=== PATIENT | female | born 1970 | race Caucasian/White ===

== ENCOUNTER → 2016-11-29 | Outpatient (CLI) | payer OTHER ==
--- NOTE | 2016-11-29 21:47 | US ---
EXAMINATION TYPE: US thyroid st tissue head/neck DATE OF EXAM: 11/29/2016 4:13 PM COMPARISON: NONE CLINICAL HISTORY: 46-year-old female E07.9 Disorder of thyroid. Choking sensation. TECHNIQUE: Multiple sonographic images of the thyroid gland are obtained. FINDINGS: Right Lobe: 4.6 x 1.6 x 1.4 cm Left Lobe: 4.5 x 1.1 x 1.2 cm Isthmus Thickness: 0.2 cm There is homogeneous glandular parenchyma without discrete nodule. Bilateral neck scanned, no evidence of lymphadenopathy. IMPRESSION: Thyroid gland measurements as above, within normal limits. No discrete nodule.
== END ==
LOC: RADUSWWP 16:02
PROVIDERS: ATTEND Family Medicine
DX: E07.9 Disorder of thyroid, unspecified (principal)
CPT/HCPCS: 76536

== ENCOUNTER → 2016-12-04 | Outpatient (CLI) | payer OTHER ==
--- NOTE | 2016-12-04 19:40 | MR ---
EXAMINATION TYPE: MR lumbar spine wo/w con DATE OF EXAM: 12/04/2016 6:57 PM COMPARISON: NONE HISTORY: low back pain Multihance 15 CONTRAST: The patient was injected with 15 mL intravenous MultiHance gadolinium contrast. Multiplanar, MultiSpin echo imaging of the lumbar spine was performed. L1-L2: Normal disc appearance without desiccation. No herniation, protrusion or disc bulging. No ca nal stenosis is present. Foramina are patent bilaterally. L2-L3: Moderate disc desiccation. Mild posterior disc bulge. No evidence for herniation protrusion or central stenosis. L3-L4: Mild to moderate disc desiccation noted. Right paracentral disc protrusion situated at the rig ht neural foramen resulting in right foraminal encroachment. No evidence for central stenosis. Left n eural foramen is patent. L4-L5: Mild disc desiccation. Right paracentral disc bulge without herniation or protrusion. No centr al stenosis. Bilateral foraminal encroachment. Facet joint arthropathy. L5-S1: Mild disc desiccation. Posterior disc bulge. Mild effacement ventral thecal sac. No evidence f or herniation or central stenosis. Moderate facet joint arthropathy resulting in left greater than ri ght foraminal encroachment. Lumbar segments are intact. No paraspinal masses are identified. Conus medullaris has a normal appe arance. No evidence of pathologic enhancement. IMPRESSION: 1. Degenerative disc disease as discussed. 2. right paracentral disc protrusions at L2-3 and L3-4 as discussed 3. Foraminal encroachment as noted above.
== END | disposition home or self-care (01) ==
LOC: RADMRIMAIN 18:10
PROVIDERS: ATTEND Nurse Practitioner Adult Health
DX: M51.36 Other intervertebral disc degeneration, lumbar region (principal); M51.37 Other intervertebral disc degeneration, lumbosacral region; M51.26 Other intervertebral disc displacement, lumbar region
CPT/HCPCS: 72158

== ENCOUNTER → 2017-01-02 | Outpatient (CLI) | payer OTHER ==
[2016-12-28 11:24] VITALS: BMI 23.5
[2017-01-02 14:09] VITALS: BP 133/64; PULSE 96; RESP 18; TEMP 98.6
--- NOTE | 2017-01-04 11:39 | P.CONS ---
History of Present Illness - Reason for Consult Consult date: 01/02/17 - History of Present Illness This is the initial consultation visit for this 46 years FEMALE, with a chronic history of severe neck pain and low back pain, patient reported that she had no specific event that caused her pain, and intensity of the pain increased over the last several months, she had a few episodes of pain several years ago and she was treated with interventional pain management and that helped her neck pain, she denies any motor deficit she denies any sensory deficit no change in the bowel movement or urination, she had no fever or night sweats, intensity of the pain as 3/10 and increases with any activity to 7-8/10, most of the neck pain localized in the cervical area and occasional radiation to the shoulder blade area, mainly to the right second and some to the left side, she is currently on multiple pain medication and she had minimal benefit from it , and she is looking forward for interventional pain management hopefully this will help her pain, and avoid any surgical intervention Past Medical History Past Medical History: Asthma, Cancer, Fibromyalgia, GERD/Reflux, Osteoarthritis (OA), Rheumatoid Arthritis (RA) Additional Past Medical History / Comment(s): hx basal cell skin cancer, cervical cancer, hypoglycemia, pain-neck and lower back/raquel danlos History of Any Multi-Drug Resistant Organisms: None Reported Past Surgical History: Cholecystectomy, Hysterectomy, Orthopedic Surgery, Tubal Ligation Additional Past Surgical History / Comment(s): rt shoulder surgery x6, D&C x2, Mohs surgery, benign tumor removed from lt arm Past Anesthesia/Blood Transfusion Reactions: Motion Sickness Past Psychological History: No Psychological Hx Reported Smoking Status: Former smoker Past Alcohol Use History: Occasional Additional Past Alcohol Use History / Comment(s): smoked "off and on 28 years" 1ppd quit 10/20 Past Drug Use History: None Reported Medications and Allergies Home Medications Medication Instructions Recorded Confirmed Type Albuterol Inhaler [Ventolin Hfa PRN 01/02/17 History Inhaler] Albuterol Nebulized [Ventolin PRN 01/02/17 01/02/17 History Nebulized] Amitriptyline HCl [Elavil] 50 mg PO HS 01/02/17 01/02/17 History Baclofen [Baclofen] 10 mg PO PRN 01/02/17 History Cetirizine HCl [Zyrtec] 10 mg PO DAILY 01/02/17 01/02/17 History Hydrocodone/Acetaminophen [[place] TID 01/02/17 History 10-325 Tablet] Ibuprofen [Motrin] 800 mg PO PRN 01/02/17 History Methylphenidate HCl [Concerta] 36 mg PO DAILY 01/02/17 01/02/17 History Minocycline HCl [Minocycline HCl 45 mg PO DAILY 01/02/17 01/02/17 History ER] Omeprazole [PriLOSEC] 20 mg PO BID 01/02/17 01/02/17 History Ranitidine HCl [Zantac] 150 mg PO BID 01/02/17 01/02/17 History Sucralfate [Carafate] 1 gm PO TID 01/02/17 01/02/17 History Allergies Allergy/AdvReac Type Severity Reaction Status Date / Time Penicillins AdvReac Rash/Hives Verified 01/02/17 13:41 Physical Exam Review of Systems : 1- Constitutional : no chills , no fever , no night sweats , 2- Ears : no ear discharge , no change in hearing 3-Nose, Mouth ,Throat ; no bleeding gums, no sore throat , no epistaxis , 4-Cardiovascular : Denies chest pain, , no orthopnea , no palpitation 5-Respiratory : Denies cough , no dyspnea , no hemoptysis 6-Gastrointestinal :, no change in bowel habits , no coffee- ground emesis . 7-Genitourinary : No hematuria , no discharge , no incontinence, 8-Musculoskeletal : Reports neck pain,, report low back pain , report right shoulder pain 9- Neurological : no ataxia , no tremor , no sezure , 10-Psychatric , no suicidal ideation no hallucination 11- Endocrine : no cold intolerence , no polyuria , no polydypsia , 12-Hematologic : no easy bleeding , no easy brusing , 13-Allergic / immunology : no angioedema , no wheezing ,no allergic rhinitis 14-Integumentary : no brttle nails , no change hair / nails , no foot/leg ulcers . Physical Examinations : 1-Constitutional : Cooperative , not in acute distress . 2-HEENT : nech ; supple , no Lymphadenopathy , no Thyromegaly , :eyes , no icterus, no photophobia . ENT : , normal oropharynx , no Thrush 3- Respiratory : Chest clear to auscultations Bilaterally , no wheezing . 4- Cardiovascular : regular rate and rhythem , S1 , S2 , no S3 , no S4. 5- Gastrointestinal: abdomen soft no tenderness , no organomegally . 6- Genitourinary : Defferred . 7-Integumentary : No cellulitis , no ulcers , normal skin turgor , no cyanotic . 8- neurologic : Cranial nerve II to XII intact , no focal neurological deffecit 9-psychatric : alert , oriented X 3 , appropriate affect , intact judgment and insight . 10-Lymphatic : no Lymphadenopathy. 11- musculoskeltal: normal gait Cervical Spine motor stregnth in the deltoid and biceps, normal right side , normal Left side motor stregnth biceps and the wrist extensors normal right side ,normal left side . motor stregnth in the triceps muscle . normal Right side , normal Left side deep tendon reflexes normal at the biceps , normal at Brachioradialis , normal at triceps. positive cervical facet loading test . Any right shoulder manipulation secondary to severe pain Lumber spine moter stegnth lower extremities ,thigh and legs 5/5 Right side , 5/5 Left side deep tendon reflexes : normal Knee Jerk , normal ankle Jerk positive lumber facet Loading Test Range of motion of the lumbar spine Flexion 30 degrees, extension 10 degrees strait leg raising test , positive at degree Fabere test positive RT and positive LT . Results Labs: MRI of the lumbar spine L2-3 disc desiccation and disc bulging, L3 4 disc desiccation and right paracentral disc protrusion and neural foraminal, L 45 disc desiccation and right paracentral disc bulging and there is facet arthropathy, L5-S1 disc desiccation and facet arthropathy. Computed tomography scan of the cervical spine cervical spondylosis with facet arthropathy mainly at C5 6 Assessment and Plan Plan: Assessment and plan = - Chronic low back pain secondary to lumbar degenerative disc disease , lumbar spondylosis with facet arthropathy without myelopathy , -Chronic neck pain secondary to cervical spondylosis with cervical facet arthropathy without myelopathy . - diagnoses, prognosis, and treatment options including but not limited to physical therapy, surgical interventions, interventional therapies and medication management including narcotics and adjuvant medication were discussed with the patient and all questions answered to the patient's satisfaction. Description already referred to see a surgeon regarding her low back pain , -medication refile = from her primary care -procedure= patient could benefit from diagnostic medial branch block cervical area C3-4/ C4- 5 / and C5-6 , will do it twice and if she had more than 50% improvement in her neck pain then we will proceed with a radiofrequency ablation of the medial posterior cervical area Time with Patient: Greater than 30
== END | disposition home or self-care (01) ==
LOC: PNWHC3 13:35
PROVIDERS: ATTEND Specialist
DX: M51.36 Other intervertebral disc degeneration, lumbar region (principal); M47.816 Spondylosis without myelopathy or radiculopathy, lumbar region; M46.96 Unspecified inflammatory spondylopathy, lumbar region; M47.812 Spondylosis without myelopathy or radiculopathy, cervical region; M46.92 Unspecified inflammatory spondylopathy, cervical region; M51.26 Other intervertebral disc displacement, lumbar region; J45.909 Unspecified asthma, uncomplicated; M79.7 Fibromyalgia; K21.9 Gastro-esophageal reflux disease without esophagitis; M19.90 Unspecified osteoarthritis, unspecified site; M06.9 Rheumatoid arthritis, unspecified; Z87.891 Personal history of nicotine dependence; Z79.899 Other long term (current) drug therapy; Z88.0 Allergy status to penicillin
CPT/HCPCS: 99211

== ENCOUNTER 2017-02-07 09:16 | Day surgery (SDC) | payer OTHER ==
[2017-02-05 08:52] VITALS: BMI 23.5
[2017-02-07] MEDS ORDERED: LACTATED RINGERS 1,000 ML IV SCH (09:30)
[2017-02-07 09:37] VITALS: TEMP 98.2
[2017-02-07] MEDS ORDERED: LIDOCAINE 1% 20 ML VIAL (10MG/ML) FOR IV START INTRADERMA ONE (09:38)
[2017-02-07 09:41] LABS: Glucose,Whole Blood 92 mg/dL (75-99)
[2017-02-07] MEDS ORDERED: MIDAZOLAM 2 MG/2 ML VIAL ONE (10:19)
[2017-02-07] MEDS ORDERED: BUPIVACAINE (PF) 0.5% 30 ML VIAL ONE (10:19)
[2017-02-07] MEDS ORDERED: DEXAMETHASONE SOD PHOS (MDV) 100 MG/10 ML VIAL ONE (10:19)
--- NOTE | 2017-02-07 10:42 | P.PCN ---
Date of Procedure: 02/07/17 Preoperative Diagnosis: Postoperative Diagnosis: Procedure(s) Performed: Implants: Surgeon: Higinio Slaughter Pathology: none sent Condition: stable Disposition: PACU Indications for Procedure: Operative Findings: Description of Procedure: PREOPERATIVE DIAGNOSIS: Cervical spondylosis without myelopathy, cervicogenic headache. POSTOPERATIVE DIAGNOSIS: same PROCEDURES: Diagnostic bilateral C4, C5, and C6 medial branch block, with fluoroscopic guidance ANESTHESIA: Local with 1% lidocaine; conscious sedation EBL: Minimal PROCEDURE INDICATION: This is a patient with neck pain and headaches secondary to cervical arthropathy unresponsive to more conservative treatments. MBB#1 today. PROCEDURE DESCRIPTION / TECHNIQUE: The patient was seen and identified in the preoperative area. Risks, benefits, complications, and alternatives were discussed with the patient (including but not limited to incomplete pain relief , bleeding, infection, nerve damage, and allergies to medications), the patient agreed to proceed with the procedure and signed the consent after all questions were answered. IV was started. Vital signs remained stable throughout the procedure. Patient was taken to the OR and time out was completed. The patient was placed in the prone position on the procedure table. A pillow was placed under the patients chest to increase the cervical interlaminar space. The cervical area was prepped and draped in the usual sterile fashion. Critical pause was taken. Vital signs were closely monitored during the procedure. Conscious sedation was used during the procedure to decrease patients anxiety. Using cross-table lateral fluoroscopy, the centroid of the trapezoid of right C4 , was identified, marked, and localized with 1% lidocaine. Subsequently, a 22- gauge 3.5-inch spinal needle was advanced guided by fluoroscopy to the centroid of the trapezoid of C4. Needle tip position was confirmed at the centroid of the trapezoids of C4 with anteroposterior fluoroscopy. Subsequently, 1 ml of a combination of 10 mg Decadron and 6 ml of preservative-free Bupivacaine 0.5% was injected after negative aspiration for blood and CSF. Needle was then removed intact; the same procedure was repeated at the right C5 and C6 levels. This process was then repeated on the left side as above for the left C4, C5, and C6 medial branches. All aspirations were negative for heme or CSF. All needles were removed intact. At the end of the procedure, skin was cleansed and bandages were applied. COMPLICATIONS: No acute complications. COMMENTS: DISPOSITION / PLANS: The patient was placed in a supine position and transferred to the recovery area in a stable condition for observation and was discharged from the recovery room after meeting discharge criteria. Home discharge instructions given to the patient by the staff. The patient was reexamined prior to discharge and there were no issues. The patient will schedule a repeat bilateral cervical medial branch block C3-C6 at next visit.
[2017-02-07] MEDS ORDERED: IV FLUID CONTINUATION 1,000 ML IV ONE ×2 (10:54)
--- NOTE | 2017-02-07 11:02 | FL ---
EXAMINATION TYPE: FL guided pain mgmt statistic DATE OF EXAM: 02/07/2017 HISTORY: Flouroscopy time 11 seconds of fluoroscopy provided. IMPRESSION: 1. Fluoroscopy time.
[2017-02-07 11:03] VITALS: BP 104/65; RESP 18
[2017-02-07 11:17] VITALS: PULSE 84
== END 2017-02-07 11:42 | disposition home or self-care (01) ==
LOC: ORPAIN 09:16
PROVIDERS: ATTEND Anesthesiology
DX: M47.812 Spondylosis without myelopathy or radiculopathy, cervical region (principal); R51 Headache; Z88.0 Allergy status to penicillin; Z91.09 Other allergy status, other than to drugs and biological substances
CPT/HCPCS: 64490; 64491; 64492; 99152; 99153; J2250; J1100

== ENCOUNTER 2017-03-26 09:49 | Day surgery (SDC) | payer OTHER ==
[2017-03-02 11:29] VITALS: BMI 23.5
[~2017-03-26 09:49] MED LIST: LACTATED RINGERS 1,000 ML IV SCH
[2017-03-26 09:58] VITALS: RESP 16; TEMP 96.2
[2017-03-26] MEDS ORDERED: LIDOCAINE 1% 20 ML VIAL (10MG/ML) FOR IV START INTRADERMA ONE (10:02)
--- NOTE | 2017-03-26 10:36 | P.PCN ---
Date of Procedure: 03/26/17 Preoperative Diagnosis: Cervical spondylosis without myelopathy Postoperative Diagnosis: same as above Procedure(s) Performed: Cervical bilateral medial branch block under fluoroscopic guidance for the medial branches number C4, C5, C6, and C7. Implants: Anesthesia: other (Moderate conscious sedation with IV Versed) Surgeon: Beronica Cain Pathology: none sent Condition: stable Disposition: PACU Indications for Procedure: Operative Findings: Description of Procedure: Was seen in preoperative holding area consent was obtained then she was brought into the procedure room and placed in the supine position. Can was prepped with DuraPrep and draped in a sterile manner. Lidocaine 1% was used to numb the skin up at the target points that were chosen as follows: The C4, C5, and C6 medial branches the target points were the center of the trapezoid shaped cervical articular pillars of the vertebral lumbar C4, C5, and C6 on the lateral view of fluoroscopy. For the C7 medial branches the target point was at the superior articular process of the C7 vertebra on the lateral view of fluoroscopy. I Used 25-gauge 3-1/2 inch Quincke spinal needle for this procedure and after contacting bone at the target points mentioned above I injected 0.5 MLS of Marcaine 0.5%. Patient tolerated procedure well. The waseizure procedure done on both sides in the same manner.
--- NOTE | 2017-03-26 10:49 | FL ---
Fluoroscopy HISTORY: Pain 16 seconds fluoroscopy time supplied to the referring clinician. 7 intraoperative C-arm images docum ent the procedure. See dictated report from anesthesia.
[2017-03-26 11:06] VITALS: BP 104/74; PULSE 86
[2017-03-26] MEDS ORDERED: IV FLUID CONTINUATION 1,000 ML IV ONE (11:08)
== END 2017-03-26 11:12 | disposition home or self-care (01) ==
LOC: ORPAIN 09:49
PROVIDERS: ATTEND Anesthesiology
DX: M47.812 Spondylosis without myelopathy or radiculopathy, cervical region (principal); Z88.0 Allergy status to penicillin
CPT/HCPCS: 64490; 64491; 64492; 99152; J2250; 99153

== ENCOUNTER 2017-04-12 10:53 | Day surgery (SDC) | payer OTHER ==
[2017-04-11 08:50] VITALS: BMI 22.7
[2017-04-12] MEDS ORDERED: LIDOCAINE 1% 20 ML VIAL (10MG/ML) FOR IV START INTRADERMA ONE (11:22)
[2017-04-12 11:25] VITALS: RESP 16; TEMP 98.5
--- NOTE | 2017-04-12 12:52 | FL ---
EXAMINATION TYPE: FL guided pain mgmt statistic DATE OF EXAM: 04/12/2017 HISTORY: Flouroscopy time 9 seconds of fluoroscopy provided. IMPRESSION: 1. Fluoroscopy time.
[2017-04-12] MEDS ORDERED: IV FLUID CONTINUATION 1,000 ML IV ONE (12:55)
--- NOTE | 2017-04-12 13:01 | P.PCN ---
Date of Procedure: 04/12/17 Preoperative Diagnosis: Postoperative Diagnosis: Procedure(s) Performed: PREOPERATIVE DIAGNOSIS: Cervical spondylosis with Facet Arthropathy without myelopathy. POSTOPERATIVE DIAGNOSIS: Cervical spondylosis with Facet Arthropathy without myelopathy. PROCEDURES: Radiofrequency thermocoagulation, right C3-4, C4-5, C5-6 medial branch with Fluroscopy [place] ANESTHESIA: Local with 1% lidocaine; IV sedation with fentanyl 100 mcg and Versed.2 mg EBL: Minimal PROCEDURE INDICATION: The patient with neck pain secondary to cervical arthropathy who had more than 50% relief of her pain with previous diagnostic cervical medial branch block. PROCEDURE DESCRIPTION / TECHNIQUE: The patient was seen and identified in the preoperative area. Risks, benefits, complications, and alternatives were discussed with the patient, the patient agreed to proceed with the procedure and signed the consent. IV was started. Vital signs remained stable throughout the procedure. Patient was taken to the OR and time out was completed. The patient was placed in the prone position on the procedure table. A pillow was placed under the patients chest to increase the cervical interlaminar space. The cervical area was prepped and draped in the usual sterile fashion. Critical pause was taken. Vital signs were closely monitored during the procedure. Conscious sedation was used during the procedure to decrease patients anxiety. Using cross-table lateral fluoroscopy, the centroid of the trapezoid of right C3, C4, C5, were identified, marked, and localized with 1% lidocaine. Subsequently, a 20 [id number] radiofrequency cannula with a 10-mm active tip was advanced guided by fluoroscopy to the centroid of the trapezoid of right C3 , C4, C5, . Needle tip position was confirmed at the centroid of the trapezoids of right C3, C4, C5, with anteroposterior fluoroscopy. Each site then underwent sensory testing at 50 Hz and 0 to 1 volt and motor testing at 2 Hz and 0 to 3 volt with local stimulation, but no radicular symptoms down the arm. Thereafter the right C3, C4,C5 sites underwent radiofrequency thermocoagulation at 80 degrees celsius for 90 seconds after injecting 0.5 ml of PF lidocaine 1%. After thermocoagulation, 1 ml of the block solution containing dexamethasone 10 mg and 3 mL of preservative-free normal saline was injected at the right C3-4, C4-5 , C5-6, levels after negative aspiration of CSF and blood and with no paresthesias. Cannulas were retracted while injecting lidocaine 1% until the needle is out. Skin was cleansed and bandages were applied. COMPLICATIONS: No acute complications. DISPOSITION / PLANS: The patient was placed in a supine position and transferred to the recovery area in a stable condition for observation and was discharged from the recovery room after meeting discharge criteria. Home discharge instructions given to the patient by the staff. The patient was reexamined prior to discharge. The patient will schedule a follow up in the clinic in 2-4 weeks. Implants: Indications for Procedure: Operative Findings: Description of Procedure:
[2017-04-12 13:12] VITALS: BP 119/72; PULSE 70
== END 2017-04-12 13:25 | disposition home or self-care (01) ==
LOC: ORPAIN 10:53
PROVIDERS: ATTEND Specialist
DX: M47.812 Spondylosis without myelopathy or radiculopathy, cervical region (principal); M46.92 Unspecified inflammatory spondylopathy, cervical region; J45.909 Unspecified asthma, uncomplicated; K21.9 Gastro-esophageal reflux disease without esophagitis; Z88.0 Allergy status to penicillin
CPT/HCPCS: 64633; 64634; 99152; 99153; J2250; J1100; J3010

== ENCOUNTER 2018-02-18 10:42 | Day surgery (SDC) | payer OTHER ==
[2018-02-13 15:17] VITALS: BMI 23.5
[~2018-02-18 10:42] MED LIST changes: +LIDOCAINE 1% 20 ML VIAL (10MG/ML) FOR IV START INTRADERMA PRN
[2018-02-18 11:07] VITALS: TEMP 98.3
[2018-02-18 11:38] LABS: Glucose,Whole Blood 95 mg/dL (75-99)
[2018-02-18] MEDS ORDERED: PROPOFOL 10 MG/ML 20 ML VIAL IV ONE (11:48)
[2018-02-18] MEDS ORDERED: MIDAZOLAM 2 MG/2 ML VIAL ONE (11:48)
[2018-02-18] MEDS ORDERED: LIDOCAINE 1% INJ 10MG/ML (20 ML MDV) ONE (11:48)
--- NOTE | 2018-02-18 12:10 | P.PCN ---
Date of Procedure: 02/18/18 Procedure(s) Performed: Procedure: Esophagogastroduodenoscopy and biopsy. Preoperative diagnosis: Chronic reflux symptoms requiring medical therapy. Postoperative diagnosis: 1. Hiatal hernia with no obvious esophagitis or complicated reflux disease. 2. Mild gastritis and duodenitis. 3. Multiple biopsies obtained from the duodenum, antrum and esophagus. Preparation sedation: Was provided by anesthesia. Brief clinical history: The patient is a 47-year-old female who is scheduled for this evaluation because of history of chronic reflux. She had an upper endoscopy at the time of her diagnosis or then 14 or 15 years ago. She has been requiring treatment on and off. No other alarm symptoms. This evaluation is to assess for esophagitis or complicated reflux disease or other pathology. Procedure: With the patient on her left lateral decubitus position and after informed consent and adequate sedation, I passed the Olympus-GIF 160 video upper endoscope through the cricopharyngeus down the esophagus. GE junction was around 35 cm from the incisors and there was a 2 cm sliding hiatal hernia but there was no evidence of acute esophagitis, strictures or Moore's esophagus. The endoscope was then passed into the stomach which was insufflated with air and inspected in detail including the retroflex view in the cardia. Finally, the endoscope was passed through the pylorus into the duodenum. Pyloric channel did not show any ulcers. Duodenal bulb, post bulbar area and descending duodenum as well as the antrum showed mottling and erythema but no ulcers or bleeding. I obtained biopsies from the duodenum, antrum and esophagus then the endoscope was withdrawn. The patient tolerated the procedure well. Plan: The patient was reassured. Will await pathology results and make further plans based on her course and biopsy results. She will follow-up with you as planned and we would be happy to see in the office of her symptoms persist.
[2018-02-18 12:13] VITALS: BP 103/65; PULSE 83; RESP 12
== END 2018-02-18 12:39 | disposition home or self-care (01) ==
LOC: ORWHC2ENDO 10:42
DX: K29.50 Unspecified chronic gastritis without bleeding (principal); K29.80 Duodenitis without bleeding; K21.0 Gastro-esophageal reflux disease with esophagitis; K44.9 Diaphragmatic hernia without obstruction or gangrene; M79.7 Fibromyalgia; M19.90 Unspecified osteoarthritis, unspecified site; M06.9 Rheumatoid arthritis, unspecified; J45.909 Unspecified asthma, uncomplicated; Z79.1 Long term (current) use of non-steroidal anti-inflammatories (NSAID); Z79.891 Long term (current) use of opiate analgesic; Z79.899 Other long term (current) drug therapy; Z88.0 Allergy status to penicillin
CPT/HCPCS: 88305; 43239; J2250; J2001; J2704

== ENCOUNTER → 2018-07-18 | Outpatient (CLI) | payer OTHER ==
--- NOTE | 2018-07-19 11:19 | MM ---
Reason for exam: screening (asymptomatic). Last mammogram was performed 2 years and 10 months ago. History: Patient is postmenopausal and has history of other cancer at age 27. Took hormonal contraceptives for 15 years. Physical Findings: A clinical breast exam by your physician is recommended on an annual basis and results should be correlated with mammographic findings. MG 3D Screening Mammo W/Cad Bilateral CC and MLO view(s) were taken. Prior study comparison: September 23, 2015, bilateral MG screening mammo w CAD. August 12, 2014, bilateral MG diagnostic mammo w CAD DEBBIE. There are scattered fibroglandular densities. No significant changes when compared with prior studies. ASSESSMENT: Benign, BI-RAD 2 RECOMMENDATION: Routine screening mammogram of both breasts in 1 year.
== END | disposition home or self-care (01) ==
LOC: RADMAMWWP 16:25
PROVIDERS: ATTEND Family Medicine
DX: Z12.31 Encounter for screening mammogram for malignant neoplasm of breast (principal)
CPT/HCPCS: 77063; 77067

== ENCOUNTER → 2018-09-19 | Outpatient (CLI) | payer OTHER ==
--- NOTE | 2018-09-19 11:50 | ECHOS ---
STRESS ECHOCARDIOGRAM INDICATIONS: Arm pain, fatigue. MEDICATIONS: Adderall, Prilosec. BASELINE HEART RATE: 87 BASELINE BLOOD PRESSURE: 117/81 MAXIMUM HEART RATE: 176 MAXIMUM BLOOD PRESSURE: 154/73 85% MPHR: 148 100% MPHR: 174 METS: 11.1 MAXIMUM STAGE REACHED: III TOTAL EXERCISE TIME: 9:44 CLINICAL INFORMATION: Baseline EKG shows sinus rhythm, normal axis, normal intervals. Patient exercised on Andrei protocol for a total of 9.5 minutes achieving 11 METS 100% of predicted maximal heart rate without chest pain or diagnostic ST-segment depression. Baseline echo shows normal left ventricular size, wall motion and systolic function. Post exercise, there is normal hyperdynamic response of all segments of myocardium noted. CONCLUSION: 1. Excellent exercise tolerance. 2. Negative stress test by EKG criteria. 3. Negative stress echo. MMODL / IJN: [id number] /
== END | disposition home or self-care (01) ==
LOC: RADNMMAIN 09:43
PROVIDERS: ATTEND Family Medicine
DX: R07.9 Chest pain, unspecified (principal)
CPT/HCPCS: 93351

== ENCOUNTER → 2018-11-18 | Outpatient (CLI) | payer OTHER | END | disposition home or self-care (01) | LOC: LABMAIN 17:44 | PROVIDERS: ATTEND Family Medicine | DX: Z53.9 Procedure and treatment not carried out, unspecified reason (principal) ==

== ENCOUNTER → 2018-11-18 | Outpatient (CLI) | payer OTHER ==
--- NOTE | 2018-11-18 21:31 | MR ---
EXAMINATION TYPE: MR knee LT wo con DATE OF EXAM: 11/18/2018 COMPARISON: Outside left knee x-ray November 06, 2018. Prior left knee MRI April 05, 2012 HISTORY: Lt knee pain per order. Pain locking and swelling for 5 years per patient with history of Eh ler Danlos. TECHNIQUE: Multiplanar, multisequence images of the knee is performed without IV contrast. FINDINGS: MEDIAL MENISCUS: Anterior horn is intact without tear. Oblique and irregular increased signal posteri or horn of medial meniscus does not definitively extend to articular surface. LATERAL MENISCUS: Anterior and posterior horns are intact without tear. CRUCIATE LIGAMENTS: The anterior and posterior cruciate ligaments are intact and unremarkable. COLLATERAL LIGAMENTS: The medial collateral ligament and lateral collateral ligament complex are inta ct and unremarkable. EXTENSOR MECHANISM: Visualized quadriceps and patellar tendons are intact. EFFUSION: No significant suprapatellar joint effusion. POPLITEAL CYST: Moderate size popliteal/vaughn cyst measuring 6.4 cm long axis sagittal image 21. TRICOMPARTMENT SPACES: Mild to moderate narrowing patellofemoral compartment with mild spurring is pr esent. There is relative preservation of medial and lateral tibiofemoral compartments. CARTILAGE: Some mild thinning of articular cartilage posterior patellar pole. Articular cartilage is maintained medial and lateral tibiofemoral compartments. BONE MARROW SIGNAL: No focal abnormal marrow signal is appreciated. OTHER: No additional significant abnormality is appreciated. IMPRESSION: 1. Possible intrasubstance tear posterior horn medial meniscus, no full-thickness meniscal or ligamen tous tear is seen. 2. Moderate sized popliteal cyst increased in size from prior. 3. Fairly stable [id number] patellofemoral joint arthropathy as detailed above.
== END ==
LOC: RADMRIMAIN 18:07
PROVIDERS: ATTEND Orthopaedic Surgery
DX: M71.22 Synovial cyst of popliteal space [Baker], left knee (principal); M12.862 Other specific arthropathies, not elsewhere classified, left knee

== ENCOUNTER → 2020-12-23 | Outpatient (CLI) | payer OTHER ==
--- NOTE | 2020-12-23 17:35 | CT ---
EXAMINATION TYPE: CT sinus wo con DATE OF EXAM: 12/23/2020 COMPARISON: none HISTORY: Chronic sinusitis. CT DLP: 587.[address] of the paranasal sinuses was performed in the axial and coronal planes. Bone and soft tissue settings are submitted. The paranasal sinuses demonstrate normal aeration and development. The paranasal sinuses are free of mucosal thickening or air fluid level. The osteal meatal units are patent bilaterally. The nasal septum is midline. No bony destructive changes are seen within the field of view. IMPRESSION: Normal unenhanced CT of the paranasal sinuses.
== END | disposition home or self-care (01) ==
LOC: RADCTMAIN 16:55
PROVIDERS: ATTEND Family Medicine
DX: J32.9 Chronic sinusitis, unspecified (principal)
CPT/HCPCS: 70486

== ENCOUNTER → 2021-01-19 | Outpatient (CLI) | payer OTHER ==
--- NOTE | 2021-01-21 10:23 | MM ---
Reason for exam: screening (asymptomatic). Last mammogram was performed 2 years and 6 months ago. History: Patient is postmenopausal and has history of other cancer at age 27. Took hormonal contraceptives for 15 years. Physical Findings: A clinical breast exam by your physician is recommended on an annual basis and results should be correlated with mammographic findings. MG 3D Screening Mammo W/Cad Bilateral CC and MLO view(s) were taken. Prior study comparison: July 18, 2018, bilateral MG 3d screening mammo w/cad. September 23, 2015, bilateral MG screening mammo w CAD. The breast tissue is almost entirely fat. Finding: There is an intermediate concern, suspicious 4 mm high density, circumscribed oval mass located 4 cm from the nipple in the 6 o'clock position of the left breast. New finding since July 18, 2018 and September 23, 2015. ASSESSMENT: Incomplete: need additional imaging evaluation, BI-RAD 0 RECOMMENDATION: Ultrasound of the left breast. [facility] will attempt to contact patient to return for ultrasound.
== END | disposition home or self-care (01) ==
LOC: RADMAMWWP 16:21
PROVIDERS: ATTEND Family Medicine
DX: Z12.31 Encounter for screening mammogram for malignant neoplasm of breast (principal); Z78.0 Asymptomatic menopausal state
CPT/HCPCS: 77063; 77067

== ENCOUNTER → 2021-03-03 | Outpatient (CLI) | payer OTHER ==
--- NOTE | 2021-03-04 14:27 | USB ---
Reason for exam: additional evaluation requested from abnormal screening. History: Patient is postmenopausal and has history of other cancer at age 27. Took hormonal contraceptives for 15 years. Physical Findings: Nurse did not find any significant physical abnormalities on exam. US Breast Workup Limited LT Left limited breast ultrasound including focal area of concern, retroareolar and axilla demonstrates a 0.4 x 0.2 x 0.4cm lesion too small to characterize at 6 o'clock, likely cystic and probably corresponds to the mammographic finding. 6 month follow up mammogram. Scanned 6-9 o'clock. These results were verbally communicated with the patient and result sheet given to the patient on 03/03/21. ASSESSMENT: Probably benign, BI-RAD 3 RECOMMENDATION: Follow-up diagnostic mammogram of the left breast in 6 months.
== END | disposition home or self-care (01) ==
LOC: RADUSWWP 14:49
PROVIDERS: ATTEND Family Medicine
DX: N64.89 Other specified disorders of breast (principal); Z78.0 Asymptomatic menopausal state

== ENCOUNTER 2021-03-23 09:49 | Day surgery (SDC) | payer OTHER ==
[2021-03-21 14:42] VITALS: BMI 27.3
[~2021-03-23 09:49] MED LIST changes: +LIDOCAINE 1% (10MG/ML) FOR IV START INTRADERMA PRN; -LIDOCAINE 1% 20 ML VIAL (10MG/ML) FOR IV START INTRADERMA PRN
[2021-03-23 11:14] VITALS: RESP 18; TEMP 96.5
[2021-03-23 11:17] LABS: Glucose,Whole Blood 100 mg/dL (75-99)
[2021-03-23] MEDS ORDERED: ONDANSETRON 4 MG/2 ML VIAL ONE (11:17)
[2021-03-23] MEDS ORDERED: ONDANSETRON 4 MG/2 ML VIAL IVP ONE (11:21)
[2021-03-23] MEDS ORDERED: DEXAMETHASONE SOD PHOSPHATE 4 MG/ML 1 ML VIAL IVP ONE (11:21)
[2021-03-23] MEDS ORDERED: SCOPOLAMINE 1.5MG/72HR PATCH TRANSDERM ONE (11:22)
[2021-03-23] MEDS ORDERED: PROPOFOL 10 MG/ML 20 ML VIAL IV ONE (12:05)
--- NOTE | 2021-03-23 12:13 | P.PCN ---
Date of Procedure: 03/23/21 Procedure(s) Performed: BRIEF HISTORY: Patient is a 50-year-old, pleasant, female scheduled for an upper endoscopy as a part of evaluation of refractory GERD symptoms despite being on acid suppressive therapy. She has daily heartburn, intermittent dysphagia to solids nausea vomiting for several years duration. No help with Nexium and Carafate in the past.. PROCEDURE PERFORMED: Esophagogastroduodenoscopy with biopsy. PREOPERATIVE DIAGNOSIS: Refractory GERD symptoms. IV sedation per anesthesia. PROCEDURE: After informed consent was obtained, the patient was brought into the endoscopy unit. IV sedation was administered by Anesthesia under continuous monitoring. Initially the Olympus GIF-140 video endoscope was inserted into the mouth. Esophagus intubated without any difficulty. It was gradually advanced into the stomach and duodenum and carefully examined. The bulb and the second part of the duodenum appeared normal. The scope at this time was withdrawn to the stomach, adequately insufflated with air, and upon careful examination, mucosa of the antrum, had mild gastritis and biopsies were done from this area. The body, cardia and the fundus appeared normal. The scope was then withdrawn into the esophagus. The GE junction was located at 40 cm from the incisors. The esophagus appeared normal. There were no erosions or ulcerations seen, biopsies were done from the distal esophagus and the patient tolerated the procedure well. IMPRESSION: 1. Normal-appearing esophagus with no evidence of esophagitis or Moore's esophagus 2. Mild antral gastritis. RECOMMENDATIONS: The findings of this examination were discussed with the patient and has a family. She was advised to follow with the biopsy results and increase omeprazole to 20 mg twice daily and follow antireflux measures.
[2021-03-23 12:35] VITALS: BP 117/81; PULSE 69
== END 2021-03-23 13:03 | disposition home or self-care (01) ==
LOC: ORWHC2ENDO 09:49
PROVIDERS: ATTEND Internal Medicine Gastroenterology
DX: K29.50 Unspecified chronic gastritis without bleeding (principal); K21.9 Gastro-esophageal reflux disease without esophagitis; J45.909 Unspecified asthma, uncomplicated; E16.2 Hypoglycemia, unspecified; M19.90 Unspecified osteoarthritis, unspecified site; Z85.41 Personal history of malignant neoplasm of cervix uteri; Z79.51 Long term (current) use of inhaled steroids; Z88.0 Allergy status to penicillin; Z85.828 Personal history of other malignant neoplasm of skin
CPT/HCPCS: 43239; 88305; J1100; J2405; J2704

== ENCOUNTER → 2021-10-05 | Outpatient (CLI) | payer OTHER ==
--- NOTE | 2021-10-05 09:57 | MM ---
Reason for exam: follow-up at short interval from prior study. Last mammogram was performed 9 months ago. History: Patient is postmenopausal and has history of other cancer at age 27. Benign cyst aspiration of the right breast, 2017. Took hormonal contraceptives for 15 years. Physical Findings: A clinical breast exam by your physician is recommended on an annual basis and results should be correlated with mammographic findings. MG 3D Diag Mammo W/Cad LT CC and MLO view(s) were taken of the left breast. Prior study comparison: January 19, 2021, bilateral MG 3d screening mammo w/cad. July 18, 2018, bilateral MG 3d screening mammo w/cad. There are scattered fibroglandular densities. Persistent tiny lesion left breast 6 o'clock. These results were verbally communicated with the patient and result sheet given to the patient on 10/05/21. ASSESSMENT: Incomplete: need additional imaging evaluation, BI-RAD 0 RECOMMENDATION: Ultrasound of the left breast.
--- NOTE | 2021-10-05 09:59 | USB ---
Reason for exam: additional evaluation requested from abnormal screening. History: Patient is postmenopausal and has history of other cancer at age 27. Benign cyst aspiration of the right breast, 2017. Took hormonal contraceptives for 15 years. US Breast Limited LT Left limited breast ultrasound including focal area of concern, retroareolar and axilla demonstrates a 0.4 x 0.2 x 0.4cm cystic lesion at 6 o'clock and a 0.5 x 0.3 x 0.4cm mixed lesion at the posterior nipple. These results were verbally communicated with the patient and result sheet given to the patient on 10/05/21. ASSESSMENT: Benign, BI-RAD 2 RECOMMENDATION: Return to routine screening mammogram schedule for both breasts. Back on schedule for January 2022.
== END | disposition home or self-care (01) ==
LOC: RADMAMWWP 08:55
PROVIDERS: ATTEND Family Medicine
DX: R92.8 Other abnormal and inconclusive findings on diagnostic imaging of breast (principal); Z78.0 Asymptomatic menopausal state
CPT/HCPCS: 77061; 77065

== ENCOUNTER → 2022-02-20 | Outpatient (CLI) | payer OTHER ==
--- NOTE | 2022-02-21 16:30 | MM ---
Reason for Exam: Screening (asymptomatic). Last mammogram was performed 1 year(s) and 1 month(s) ago. Patient History: Menarche at age 13. First Full-Term at age 24. Left ovary removed at age 38. Right ovary removed at age 38. Hysterectomy at age 38. Postmenopausal. Other cancer, age 27. Patient used Hormonal Contraceptives for 15 years. 2017, Benign Cyst Aspiration on the right side. Risk Values: Lety 5 year model risk: 0.9%. NCI Lifetime model risk: 8.9%. Prior Study Comparison: 07/18/2018 Bilateral Screening Mammogram, [facility]. 01/19/2021 Bilateral Screening Mammogram, [facility]. 10/05/2021 Left Diagnostic Mammogram, [facility]. Tissue Density: There are scattered fibroglandular densities. Findings: Analyzed By CAD. There is no suspicious group of microcalcifications or new suspicious mass in either breast. Chronic nodularity in both breasts. No significant change from prior examination. Overall Assessment: Benign, BI-RAD 2 Management: Screening Mammogram of both breasts in 1 year. A clinical breast exam by your physician is recommended on an annual basis and results should be correlated with mammographic findings. Electronically signed and approved by: Kenny Marie D.O.
== END | disposition home or self-care (01) ==
LOC: RADMAMWWP 16:20
PROVIDERS: ATTEND Family Medicine
DX: Z12.31 Encounter for screening mammogram for malignant neoplasm of breast (principal); Z78.0 Asymptomatic menopausal state
CPT/HCPCS: 77063; 77067

== ENCOUNTER 2022-04-18 08:47 | Day surgery (SDC) | payer OTHER ==
[2022-04-18 09:32] VITALS: TEMP 97
[2022-04-18] MEDS ORDERED: PROPOFOL 10 MG/ML 20 ML VIAL IV ONE (09:58)
[2022-04-18] MEDS ORDERED: LIDOCAINE 2% INJ 20 MG/ML (2 ML VIAL) ONE (09:58)
--- NOTE | 2022-04-18 10:24 | P.PCN ---
Date of Procedure: 04/18/22 Procedure(s) Performed: BRIEF HISTORY: Patient is a 51-year-old pleasant white female scheduled for an elective colonoscopy as a part of positive cologuard. PROCEDURE PERFORMED: Colonoscopy. PREOPERATIVE DIAGNOSIS: Positive cologuard. IV sedation per Anesthesia. PROCEDURE: After informed consent was obtained, the patient, was brought into the endoscopy unit. IV sedation was administered by Anesthesia under continuous monitoring. Digital rectal examination was normal. Initially the Olympus CF-160 flexible video colonoscope was then inserted in the rectum, gradually advanced into the cecum without any difficulty. Careful examination was performed as the scope was gradually being withdrawn. Ileocecal valve and the appendiceal orifice were visualized and appeared normal. Prep was excellent. Mucosa of the cecum, ascending colon, transverse colon, descending colon, sigmoid colon, and rectum a ppeared normal. Scattered sigmoid diverticula cyst. Retroflexion was performed in the rectum and no lesions were seen. The patient tolerated the procedure well. IMPRESSION: Normal-appearing colon from rectum to cecum with no evidence of colorectal neoplasia . Scattered sigmoid diverticulosis. RECOMMENDATIONS: Findings of this examination were discussed with the patient as well as a family. She was advised to have a repeat screening colonoscopy in 10 years..
[2022-04-18 10:28] VITALS: PULSE 76
[2022-04-18 10:45] VITALS: BP 111/70; RESP 18
== END 2022-04-18 11:05 | disposition home or self-care (01) ==
LOC: ORWHC2ENDO 08:47
PROVIDERS: ATTEND Internal Medicine Gastroenterology
DX: K57.30 Diverticulosis of large intestine without perforation or abscess without bleeding (principal); J45.909 Unspecified asthma, uncomplicated; M19.90 Unspecified osteoarthritis, unspecified site; R00.9 Unspecified abnormalities of heart beat; Z88.0 Allergy status to penicillin; Z79.899 Other long term (current) drug therapy
CPT/HCPCS: 45378; J2704; J2001

== ENCOUNTER → 2023-03-13 | Outpatient (CLI) | payer OTHER ==
--- NOTE | 2023-03-14 07:57 | MM ---
Reason for Exam: Screening (asymptomatic). Last mammogram was performed 1 year(s) and 1 month(s) ago. Patient History: Menarche at age 13. First Full-Term at age 24. Left ovary removed at age 38. Right ovary removed at age 38. Hysterectomy at age 38. Postmenopausal. Other cancer, age 27. Patient used Hormonal Contraceptives for 15 years. 2017, Benign Cyst Aspiration on the right side. Mother had ovarian cancer, age 51. Risk Values: Lety 5 year model risk: 0.9%. NCI Lifetime model risk: 8.8%. Prior Study Comparison: 01/19/2021 Bilateral Screening Mammogram, [facility]. 10/05/2021 Left Diagnostic Mammogram, [facility]. 02/20/2022 Bilateral MG 3D screening mammo w/cad, [facility]. Tissue Density: There are scattered fibroglandular densities. Findings: Analyzed By CAD. There is no suspicious group of microcalcifications or new suspicious mass in either breast. Overall Assessment: Negative, BI-RAD 1 Management: Screening Mammogram of both breasts in 1 year. . Patient should continue monthly self-breast exams. A clinical breast exam by your physician is recommended on an annual basis. This exam should not preclude additional follow-up of suspicious palpable abnormalities. Note on Lety scores and lifetime risk: 1. A Lety score greater than 3% is considered moderate risk. If this is the case, consider specialist referral to assess eligibility for a risk reducing agent. 2. If overall lifetime risk for the development of breast cancer is 20% or higher, the patient may qualify for future screening with alternating mammogram and breast MRI. Electronically signed and approved by: Jomar Leggett M.D. Radiologis
== END | disposition home or self-care (01) ==
LOC: RADMAMWWP 16:25
PROVIDERS: ATTEND Family Medicine
DX: Z12.31 Encounter for screening mammogram for malignant neoplasm of breast (principal); Z78.0 Asymptomatic menopausal state
CPT/HCPCS: 77063; 77067

== ENCOUNTER → 2024-03-14 | Outpatient (CLI) | payer OTHER ==
--- NOTE | 2024-04-03 10:27 | MM ---
Reason for Exam: Screening (asymptomatic). Last screening mammogram was performed 12 month(s) ago. Patient History: Menarche at age 13. First Full-Term at age 24. Left ovary removed at age 38. Right ovary removed at age 38. Hysterectomy at age 38. Postmenopausal. Other cancer, age 27. Patient used Hormonal Contraceptives for 15 years. 2017, Benign Cyst Aspiration on the right side. Mother had ovarian cancer, age 51. Risk Values: Lety 5 year model risk: 1.0%. NCI Lifetime model risk: 8.7%. Prior Study Comparison: 10/05/2021 Left Diagnostic Mammogram, [facility]. 02/20/2022 Bilateral MG 3D screening mammo w/cad, [facility]. 03/13/2023 Bilateral MG 3D screening mammo w/cad, [facility]. Tissue Density: The breasts are almost entirely fatty. Findings: Analyzed By CAD. Right breast: There is no suspicious group of microcalcifications or new suspicious mass. Left breast: There is no suspicious group of microcalcifications or new suspicious mass. Overall Assessment: Negative, BI-RAD 1 Management: Screening Mammogram of both breasts in [address] [facility] will attempt to contact patient to return for supplemental views and ultrasound if indicated. Patient should continue monthly self-breast exams. A clinical breast exam by your physician is recommended on an annual basis. This exam should not preclude additional follow-up of suspicious palpable abnormalities. Note on Lety scores and lifetime risk: 1. A Lety score greater than 3% is considered moderate risk. If this is the case, consider specialist referral to assess eligibility for a risk reducing agent. 2. If overall lifetime risk for the development of breast cancer is 20% or higher, the patient may qualify for future screening with alternating mammogram and breast MRI. Electronically signed and approved by: John De La Rosa DO
== END | disposition home or self-care (01) ==
LOC: RADMAMWWP 12:00
PROVIDERS: ATTEND Family Medicine
DX: Z12.31 Encounter for screening mammogram for malignant neoplasm of breast (principal); Z78.0 Asymptomatic menopausal state; Z90.721 Acquired absence of ovaries, unilateral; R92.313 Mammographic fatty tissue density, bilateral breasts
CPT/HCPCS: 77063; 77067

== ENCOUNTER → 2024-08-20 | Outpatient (CLI) | payer OTHER ==
--- NOTE | 2024-08-20 21:29 | CT ---
EXAMINATION TYPE: CT noncontrast chest abdomen pelvis. CT angio thor/abd pel aorta DATE OF EXAM: 08/20/2024 5:36 PM COMPARISON: None. 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 TECHNIQUE: Noncontrast CT chest followed by CT angiogram chest abdomen pelvis. A noncontrast CT chest Multiple a xial CT images of the chest, abdomen, and pelvis were obtained prior to and after the administration of IV contrast. 3-D reformats and maximum intensity projection format were performed on a separate [employer] rkstation. . Contrast used:100 mL of Isovue 370 with IV Contrast, Oral contrast used: CT DLP: 1505.4 mGycm, Automated exposure control for dose reduction was used. FINDINGS: ARTERIAL VASCULATURE: Ascending thoracic aorta and descending thoracic aorta are within normal limits for size. There is no evidence for intramural hematoma within the aorta on noncontrast imaging. Post contrast imaging demonstrates no evidence for dissection. The major vessels of the aortic arch are pa tent. The major vessels of the abdominal aorta are patent. PULMONARY ARTERIAL VASCULATURE: Normal caliber. No evidence of filling defect to suggest pulmonary em bolus. VENOUS SYSTEM: Unremarkable. LUNGS/ PLEURA: No focal consolidation, pneumothorax or pleural effusion. AIRWAY: Patent and unremarkable. HEART: Size within normal limits. MEDIASTINUM: No gross evidence of adenopathy. MUSCULOSKELETAL: No acute osseous abnormalities SOFT TISSUES/LYMPH NODES: Unremarkable. LOWER NECK: No significant findings. Abdomen: LIVER: Unremarkable GALLBLADDER AND BILE DUCTS: The gallbladder is surgically absent. PANCREAS: Unremarkable. SPLEEN: Unremarkable. ADRENAL GLANDS: Unremarkable. KIDNEYS AND URETERS: No evidence of hydronephrosis or renal calculus. The ureters are unremarkable. PELVIS BLADDER: Unremarkable REPRODUCTIVE: Unremarkable. ABDOMEN & PELVIS STOMACH AND BOWEL: No evidence of bowel obstruction. The appendix is normal. PERITONEUM/RETROPERITONEUM: No evidence of pneumoperitoneum or free fluid. MUSCULOSKELETAL: No acute osseous abnormalities LYMPH NODES: No gross evidence for lymphadenopathy. SOFT TISSUE/ABDOMINAL WALL: Fat-containing umbilical hernia. IMPRESSION: No evidence for aortic dissection, aneurysm or occlusion. [facility], , 08/20/2024 9:26 PM
== END | disposition home or self-care (01) ==
LOC: RADCTMAIN 15:47
PROVIDERS: ATTEND Internal Medicine Cardiovascular Disease
DX: Q79.60 Ehlers-Danlos syndrome, unspecified (principal); Z87.59 Personal history of other complications of pregnancy, childbirth and the puerperium; K42.9 Umbilical hernia without obstruction or gangrene
CPT/HCPCS: 71275; 74174; Q9967